=== PATIENT | male | born 1970 | race Caucasian/White ===

== ENCOUNTER 2021-06-15 05:55 | Emergency (ER) | payer OTHER, SELFPAY ==
[2021-06-15] VITALS (9 sets, daily range): BP systolic 124–182; BP diastolic 61–84; PULSE 112–135; RESP 9–32; TEMP 37; O2SAT 95–100; BMI 33.9
--- NOTE | 2021-06-15 06:02 | ED_ITS ---
HPI - SOB/Dyspnea <Palmer Chen DO - Last Filed: 06/16/21 00:27> General Chief Complaint: Shortness of Breath/Dyspnea Stated Complaint: Asthma attack Time Seen by Provider: 06/15/21 05:55 History of Present Illness HPI Narrative: 50-year-old male nonsmoker with history of asthma presents by EMS for evaluation of a severe asthma exacerbation was started a few hours ago. He is unaware of what his trigger was but has become significantly short of breath and by the time EMS arrived they found his respiratory rate in the 40s and a pulse ox in the mid 70s. He denies runny nose, sore throat nor fever or chills. He has no chest pain. He has been taking his medications as directed. His last severe exacerbation was about 4 months ago. He does not live locally. Related Data Previous Rx's Medication Instructions Recorded albuterol sulfate 2.5 mg INHALATION Q4-6H PRN #90 ml 06/15/21 nebulizers #1 ea 06/15/21 prednisone 10 mg tablet See Rx Instructions .ROUTE 06/15/21 .COMPLEX #30 tab Allergies Allergy/AdvReac Type Severity Reaction Status Date / Time No Known Drug Allergies Allergy Verified 06/15/21 06:07 Review of Systems <Palmer Chen DO - Last Filed: 06/16/21 00:27> Review of Systems Narrative: GENERAL: Denies chills, fatigue, malaise, fever, sweats. HEENT: Denies sinus pain, ear pain, sore throat, difficulty swallowing, dizziness. RESPIRATORY: See HPI CARDIOVASCULAR: Denies chest pain, palpitations, orthopnea, edema, GASTROINTESTINAL: Denies nausea, vomiting, abdominal pain, diarrhea, constipation, melena. : Denies dysuria, frequency, incontinence, hematuria, urinary retention. MUSCULOSKELETAL: denies weakness, joint pain, or bony pain SKIN: Denies rash, skin lesions, or other NEUROLOGIC: Denies weakness, headache, numbness, change in speech, confusion, seizures, incoordination. PSYCHIATRIC: No concerning psychosocial issues. 12 point review of systems is negative except for those stated above Exam <Palmer Chen DO - Last Filed: 06/16/21 00:27> Narrative Exam Narrative: GENERAL: [50] year old patient appears stated age. Well- developed patient, in severe distress, non-rebreather in place, rapid breathing, moving little air HEAD: Atraumatic. Normocephalic. EYES: Pupils equal round and reactive. Extraocular motions intact. No scleral icterus. No injection or drainage. ENT: Nose without bleeding, purulent drainage. Throat without erythema, tonsillar hypertrophy or exudate. Airway patent. NECK: Trachea midline. Non tender CARDIOVASCULAR: Tachycardic but regular rhythm without murmurs, gallops, or rubs. RESPIRATORY: Decreased breath sounds throughout, very tight, little air movement, tachypneic GASTROINTESTINAL: Abdomen soft, non-tender, nondistended. EXTREMITIES: No edema or joint tenderness. BACK: Nontender without deformity or crepitance. No flank tenderness. NEURO: AOx3. SKIN: No rash or erythema of visible areas Initial Vital Signs Initial Vital Signs: Vital Signs Temperature 98.6 F 06/15/21 05:55 Pulse Rate 125 H 06/15/21 05:55 Respiratory Rate 32 H 06/15/21 05:55 Blood Pressure 182/84 H 06/15/21 05:55 Pulse Oximetry 95 06/15/21 05:55 <Kisha Banegas DO - Last Filed: 06/15/21 10:02> Initial Vital Signs Initial Vital Signs: Vital Signs Temperature 98.6 F 06/15/21 05:55 Pulse Rate 125 H 06/15/21 05:55 Respiratory Rate 32 H 06/15/21 05:55 Blood Pressure 182/84 H 06/15/21 05:55 Pulse Oximetry 95 06/15/21 05:55 Course <Palmer Chen DO - Last Filed: 06/16/21 00:27> Orders Ordered: Discontinued Medications Albuterol (Albuterol 2.5 Mg/3 Ml Neb (Adult)) 20 mg INH NOW ONE Stop: 06/15/21 06:40 Last Admin: 06/15/21 06:03 Dose: 20 mg Documented by: SANDI Sodium Chloride (Normal Saline 0.9%) 1,000 mls @ 125 mls/hr IV CONT JIGNESH Last Infusion: 06/15/21 08:06 Dose: 0 mls/hr Documented by: Admin: 06/15/21 06:06 Dose: 125 mls/hr Documented by: ELLY Magnesium Sulfate (Magnesium Sulfate) 2 gm in 50 mls @ 150 mls/hr IV NOW ONE Stop: 06/15/21 06:17 Last Infusion: 06/15/21 06:30 Dose: 0 mls/hr Documented by: JEWEL Cosigned by: ELLY Admin: 06/15/21 06:06 Dose: 150 mls/hr Documented by: ELLY Cosigned by: JEWEL Ipratropium [place] (Ipratropium 0.5 Mg/2.5 Ml Neb) 1.5 mg INH NOW ONE Stop: 06/15/21 06:40 Last Admin: 06/15/21 06:03 Dose: 1.5 mg Documented by: SANDI Methylprednisolone (Methylprednisolone 125 Mg/2 Ml Vial) 125 mg IV NOW ONE Stop: 06/15/21 06:20 Last Admin: 06/15/21 06:27 Dose: 125 mg Documented by: ELLY Reevaluation(s) Reevaluation #1: Respiratory therapy waiting on EMS arrival, albuterol 20 mg and Atrovent given, magnesium and fluid bolus given Reevaluation #2: patient feeling significant improvement after above stated therapies Vital Signs Vital signs: Vital Signs - 8 hr 06/15/21 05:55 06/15/21 06:03 06/15/21 06:14 Temperature 98.6 F Pulse Rate 125 H 135 H 122 H Respiratory Rate 32 H 26 H 9 L Blood Pressure 182/84 H Pulse Oximetry 95 98 06/15/21 06:30 06/15/21 06:31 06/15/21 07:00 Temperature Pulse Rate 118 H 121 H 119 H Respiratory Rate 10 L 9 L 11 L Blood Pressure 137/78 124/61 Pulse Oximetry 99 99 100 06/15/21 07:10 06/15/21 07:30 06/15/21 08:00 Temperature Pulse Rate 119 H 112 H Respiratory Rate 20 22 Blood Pressure 133/73 Pulse Oximetry 97 95 <Kisha Banegas DO - Last Filed: 06/15/21 10:02> Orders Ordered: Discontinued Medications Albuterol (Albuterol 2.5 Mg/3 Ml Neb (Adult)) 20 mg INH NOW ONE Stop: 06/15/21 06:40 Last Admin: 06/15/21 06:03 Dose: 20 mg Documented by: SANDI Sodium Chloride (Normal Saline 0.9%) 1,000 mls @ 125 mls/hr IV CONT JIGNESH Last Infusion: 06/15/21 08:06 Dose: 0 mls/hr Documented by: Admin: 06/15/21 06:06 Dose: 125 mls/hr Documented by: ELLY Magnesium Sulfate (Magnesium Sulfate) 2 gm in 50 mls @ 150 mls/hr IV NOW ONE Stop: 06/15/21 06:17 Last Infusion: 06/15/21 06:30 Dose: 0 mls/hr Documented by: JEWEL Cosigned by: ELLY Admin: 06/15/21 06:06 Dose: 150 mls/hr Documented by: ELLY Cosigned by: JEWEL Ipratropium [place] (Ipratropium 0.5 Mg/2.5 Ml Neb) 1.5 mg INH NOW ONE Stop: 06/15/21 06:40 Last Admin: 06/15/21 06:03 Dose: 1.5 mg Documented by: SANDI Methylprednisolone (Methylprednisolone 125 Mg/2 Ml Vial) 125 mg IV NOW ONE Stop: 06/15/21 06:20 Last Admin: 06/15/21 06:27 Dose: 125 mg Documented by: ELLY Vital Signs Vital signs: Vital Signs - 8 hr 06/15/21 05:55 06/15/21 06:03 06/15/21 06:14 Temperature 98.6 F Pulse Rate 125 H 135 H 122 H Respiratory Rate 32 H 26 H 9 L Blood Pressure 182/84 H Pulse Oximetry 95 98 06/15/21 06:30 06/15/21 06:31 06/15/21 07:00 Temperature Pulse Rate 118 H 121 H 119 H Respiratory Rate 10 L 9 L 11 L Blood Pressure 137/78 124/61 Pulse Oximetry 99 99 100 06/15/21 07:10 06/15/21 07:30 06/15/21 08:00 Temperature Pulse Rate 119 H 112 H Respiratory Rate 20 22 Blood Pressure 133/73 Pulse Oximetry 97 95 MDM - SOB/Dyspnea <Palmer Chen DO - Last Filed: 06/16/21 00:27> Lab Data Result diagrams: 06/15/21 06:05 06/15/21 06:05 Labs: Lab Results 06/15/21 06/15/21 06/15/21 Range/Units 06:00 06:05 06:05 WBC 7.5 (4.5-11.0) X10^3/uL RBC 5.18 (4.5-5.9) X10^6/uL Hgb 15.6 (13.5-17.5) g/dL Hct 46.8 (41-53) % MCV 90.4 (80-100) fL MCH 30.2 (26-34) PG MCHC 33.4 (30-36) % RDW 12.6 (11.6-14.8) % Plt Count 308 (150-400) X10^3/uL Neut % (Auto) 41.4 L (50-75) % Lymph % (Auto) 44.8 H (25-40) % Ralls % (Auto) 6.1 (3-14) % Eos % (Auto) 6.7 H (2-4) % Baso % (Auto) 1.0 (0-2) % Neut # (Auto) 3100 (1511-4774) /uL Lymph # (Auto) 3400 (9472-1643) /uL Ralls # (Auto) 500 (0-900) /uL Eos # (Auto) 500 H (0-450) /uL Baso # (Auto) 100 (0-100) /uL ABG pH (7.35-7.45) ABG pCO2 (35-45) mmHg ABG pO2 (80-100) mmHg ABG HCO3 (22-26) mmol/L ABG Total CO2 (21-31) mmol/L ABG O2 Saturation (95-100) % ABG Base Excess (-2-2) mmol/L FiO2 Sodium 140 (137-145) mmol/L Potassium 3.5 (3.4-5.1) mmol/L Chloride 103 (98-107) mmol/L Carbon Dioxide 29 (22-32) mmol/L BUN 22 H (9-20) mg/dL Creatinine 0.72 (0.66-1.25) mg/dL Estimated GFR > 60.0 (>60) mL/min BUN/Creatinine Ratio 30.6 H (6-22) Glucose 136 H (70-100) mg/dL Calcium 9.1 (8.4-10.2) mg/dL Magnesium 1.8 (1.6-2.3) mg/dL Total Bilirubin 0.4 (0.2-1.3) mg/dL AST 26 (17-59) IU/L ALT 33 (<50) IU/L Alkaline Phosphatase 72 (38-126) U/L Total Creatine Kinase 76 (55-170) U/L CK-MB (CK-2) TNP CK-MB (CK-2) Rel Index TNP Troponin I < 0.012 (0.01-0.034) ng/mL NT-Pro-B Natriuret Pep 37 (<125) pg/mL Total Protein 7.6 (6.3-8.2) g/dL Albumin 4.7 (3.5-5.0) g/dL Globulin 2.9 (1.7-4.1) g/dL Albumin/Globulin Ratio 1.6 (1.0-2.8) SARS-CoV-2 (PCR) Negative (Negative) 06/15/21 Range/Units 06:16 WBC (4.5-11.0) X10^3/uL RBC (4.5-5.9) X10^6/uL Hgb (13.5-17.5) g/dL Hct (41-53) % MCV (80-100) fL MCH (26-34) PG MCHC (30-36) % RDW (11.6-14.8) % Plt Count (150-400) X10^3/uL Neut % (Auto) (50-75) % Lymph % (Auto) (25-40) % Ralls % (Auto) (3-14) % Eos % (Auto) (2-4) % Baso % (Auto) (0-2) % Neut # (Auto) (7692-5548) /uL Lymph # (Auto) (3448-3045) /uL Ralls # (Auto) (0-900) /uL Eos # (Auto) (0-450) /uL Baso # (Auto) (0-100) /uL ABG pH 7.29 L* (7.35-7.45) ABG pCO2 51.8 H (35-45) mmHg ABG pO2 90 (80-100) mmHg ABG HCO3 25 (22-26) mmol/L ABG Total CO2 26 (21-31) mmol/L ABG O2 Saturation 96 (95-100) % ABG Base Excess -2.0 (-2-2) mmol/L FiO2 60 Sodium (137-145) mmol/L Potassium (3.4-5.1) mmol/L Chloride (98-107) mmol/L Carbon Dioxide (22-32) mmol/L BUN (9-20) mg/dL Creatinine (0.66-1.25) mg/dL Estimated GFR (>60) mL/min BUN/Creatinine Ratio (6-22) Glucose (70-100) mg/dL Calcium (8.4-10.2) mg/dL Magnesium (1.6-2.3) mg/dL Total Bilirubin (0.2-1.3) mg/dL AST (17-59) IU/L ALT (<50) IU/L Alkaline Phosphatase (38-126) U/L Total Creatine Kinase (55-170) U/L CK-MB (CK-2) CK-MB (CK-2) Rel Index Troponin I (0.01-0.034) ng/mL NT-Pro-B Natriuret Pep (<125) pg/mL Total Protein (6.3-8.2) g/dL Albumin (3.5-5.0) g/dL Globulin (1.7-4.1) g/dL Albumin/Globulin Ratio (1.0-2.8) SARS-CoV-2 (PCR) (Negative) <Kisha Banegas, - Last Filed: 06/15/21 10:02> Lab Data Labs: Lab Results 06/15/21 06/15/21 06/15/21 Range/Units 06:00 06:05 06:05 WBC 7.5 (4.5-11.0) X10^3/uL RBC 5.18 (4.5-5.9) X10^6/uL Hgb 15.6 (13.5-17.5) g/dL Hct 46.8 (41-53) % MCV 90.4 (80-100) fL MCH 30.2 (26-34) PG MCHC 33.4 (30-36) % RDW 12.6 (11.6-14.8) % Plt Count 308 (150-400) X10^3/uL Neut % (Auto) 41.4 L (50-75) % Lymph % (Auto) 44.8 H (25-40) % Ralls % (Auto) 6.1 (3-14) % Eos % (Auto) 6.7 H (2-4) % Baso % (Auto) 1.0 (0-2) % Neut # (Auto) 3100 (8350-0999) /uL Lymph # (Auto) 3400 (5671-1712) /uL Ralls # (Auto) 500 (0-900) /uL Eos # (Auto) 500 H (0-450) /uL Baso # (Auto) 100 (0-100) /uL ABG pH (7.35-7.45) ABG pCO2 (35-45) mmHg ABG pO2 (80-100) mmHg ABG HCO3 (22-26) mmol/L ABG Total CO2 (21-31) mmol/L ABG O2 Saturation (95-100) % ABG Base Excess (-2-2) mmol/L FiO2 Sodium 140 (137-145) mmol/L Potassium 3.5 (3.4-5.1) mmol/L Chloride 103 (98-107) mmol/L Carbon Dioxide 29 (22-32) mmol/L BUN 22 H (9-20) mg/dL Creatinine 0.72 (0.66-1.25) mg/dL Estimated GFR > 60.0 (>60) mL/min BUN/Creatinine Ratio 30.6 H (6-22) Glucose 136 H (70-100) mg/dL Calcium 9.1 (8.4-10.2) mg/dL Magnesium 1.8 (1.6-2.3) mg/dL Total Bilirubin 0.4 (0.2-1.3) mg/dL AST 26 (17-59) IU/L ALT 33 (<50) IU/L Alkaline Phosphatase 72 (38-126) U/L Total Creatine Kinase 76 (55-170) U/L CK-MB (CK-2) TNP CK-MB (CK-2) Rel Index TNP Troponin I < 0.012 (0.01-0.034) ng/mL NT-Pro-B Natriuret Pep 37 (<125) pg/mL Total Protein 7.6 (6.3-8.2) g/dL Albumin 4.7 (3.5-5.0) g/dL Globulin 2.9 (1.7-4.1) g/dL Albumin/Globulin Ratio 1.6 (1.0-2.8) SARS-CoV-2 (PCR) Negative (Negative) 06/15/21 Range/Units 06:16 WBC (4.5-11.0) X10^3/uL RBC (4.5-5.9) X10^6/uL Hgb (13.5-17.5) g/dL Hct (41-53) % MCV (80-100) fL MCH (26-34) PG MCHC (30-36) % RDW (11.6-14.8) % Plt Count (150-400) X10^3/uL Neut % (Auto) (50-75) % Lymph % (Auto) (25-40) % Ralls % (Auto) (3-14) % Eos % (Auto) (2-4) % Baso % (Auto) (0-2) % Neut # (Auto) (6875-5124) /uL Lymph # (Auto) (6536-3038) /uL Ralls # (Auto) (0-900) /uL Eos # (Auto) (0-450) /uL Baso # (Auto) (0-100) /uL ABG pH 7.29 L* (7.35-7.45) ABG pCO2 51.8 H (35-45) mmHg ABG pO2 90 (80-100) mmHg ABG HCO3 25 (22-26) mmol/L ABG Total CO2 26 (21-31) mmol/L ABG O2 Saturation 96 (95-100) % ABG Base Excess -2.0 (-2-2) mmol/L FiO2 60 Sodium (137-145) mmol/L Potassium (3.4-5.1) mmol/L Chloride (98-107) mmol/L Carbon Dioxide (22-32) mmol/L BUN (9-20) mg/dL Creatinine (0.66-1.25) mg/dL Estimated GFR (>60) mL/min BUN/Creatinine Ratio (6-22) Glucose (70-100) mg/dL Calcium (8.4-10.2) mg/dL Magnesium (1.6-2.3) mg/dL Total Bilirubin (0.2-1.3) mg/dL AST (17-59) IU/L ALT (<50) IU/L Alkaline Phosphatase (38-126) U/L Total Creatine Kinase (55-170) U/L CK-MB (CK-2) CK-MB (CK-2) Rel Index Troponin I (0.01-0.034) ng/mL NT-Pro-B Natriuret Pep (<125) pg/mL Total Protein (6.3-8.2) g/dL Albumin (3.5-5.0) g/dL Globulin (1.7-4.1) g/dL Albumin/Globulin Ratio (1.0-2.8) SARS-CoV-2 (PCR) (Negative) MDM Narrative Medical decision making narrative: I received sign-out from Dr. Chen. I have seen and evaluated patient myself. History of asthma as increasing shortness of breath and chest tightness this morning presenting with low O2 at 70%. He received continuous nebulizer, magnesium and Solu-Medrol. He is overall breathing all much better. He is taken off oxygen and maintaining his O2 greater than 95%. He is speaking in full sentences without any difficulty. He ambulated to the restroom have any problem. He says his asthma is usually very well controlled with QVAR and albuterol. However about every is 5-6 months he gets a severe in attack landing him in the emergency department. He usually gets placed on prednisone and does fine afterwards. No prior history of intubations or stations. It is unknow what his trigger was today. He states he uses albuterol multiple times a week I recommend talking to his primary care provider to see if he can be on a different medication to help stabilize his asthma Discharge Plan Departure Patient Disposition: Home Clinical Impression: Asthma with exacerbation Instructions: DI for Asthma -- Adult Activity Restrictions/Additional Instructions: *You have been diagnosed with [ Asthma exacerbation] *What to do: *Please continue to take your regular medications as directed. [ ] New medication prescriptions sent to your pharmacy: [ ] [x ] New medication written as a paper prescription [ ] No new medications given *Please follow up with your primary care provider in 2-3 days, call for an appointment. Let them know you were seen in the Emergency Department and that we ask that you be seen in follow up. We will electronically transmit a record of today's note if your PCP is in our system *If you do not have a primary care provider please contact the [facility] Resource line at [phone]. They will ask some questions about your medical history and help get you set up with a doctor in the community. *Return to Emergency Department if you should have any new, worsening or concerning symptoms, such as [fever greater than 101 F, shaking chills, worsening pain, persistent vomiting or other bothersome symptoms] Prescriptions: New prednisone 10 mg tablet See Rx Instructions .ROUTE .COMPLEX Qty: 30 RF: 0 (DME) nebulizers Misc See Rx Instructions .Route Qty: 1 RF: 0 albuterol sulfate 2.5 mg /3 mL (0.083 %) solution for nebulization 2.5 mg INHALATION Q4-6H PRN (Reason: shortness of breath or wheezing) Qty: 90 RF: 0
[2021-06-15] MEDS: ALBUTEROL 2.5 MG/3 ML NEB (ADULT) 20 MG INH (06:03)
[2021-06-15] MEDS: IPRATROPIUM 0.5 MG/2.5 ML NEB 1.5 MG INH (06:03)
[2021-06-15] MEDS: MAGNESIUM SULFATE 2 GM/50 ML PIGGYBACK IV (06:06)
[2021-06-15] MEDS: SODIUM CHLORIDE 0.9% 1,000 ML 125 ML IV (06:06)
[2021-06-15 06:12] LABS: Add Manual Diff / Slide Review NO; Basophils Absolute Auto 100 /uL (0-100); Eosinophils Absolute Auto 500 /uL (0-450); Eosinophils Percent Auto 6.7 % (2-4); Hematocrit 46.8 % (41-53); Hemoglobin 15.6 g/dL (13.5-17.5); Lymphocytes Absolute Auto 3400 /uL (1100-4500); Lymphocytes Percent Auto 44.8 % (25-40); Mean Corpuscular HGB Conc 33.4 % (30-36); Mean Corpuscular Hemoglobin 30.2 PG (26-34); Mean Corpuscular Volume 90.4 fL (80-100); Monocytes Absolute Auto 500 /uL (0-900); Monocytes Percent Auto 6.1 % (3-14); Neutrophils Absolute Auto 3100 /uL (1500-7000); Neutrophils Percent Auto 41.4 % (50-75); Platelet Count 308 X10^3/uL (150-400); Red Blood Cell Count 5.18 X10^6/uL (4.5-5.9); Red Cell Distribution Width 12.6 % (11.6-14.8); White Blood Cell Count 7.5 X10^3/uL (4.5-11.0)
[2021-06-15 06:21] LABS: COVID19 -Nasal RAPID Negative (Negative)
[2021-06-15 06:24] LABS: Alanine Aminotransferase 33 IU/L (<50); Albumin 4.7 g/dL (3.5-5.0); Albumin Globulin Ratio 1.6 (1.0-2.8); Alkaline Phosphatase 72 U/L (38-126); Aspartate Aminotransferase 26 IU/L (17-59); BUN Creatinine Ratio 30.6 (6-22); Bilirubin Total 0.4 mg/dL (0.2-1.3); Blood Urea Nitrogen 22 mg/dL (9-20); Calcium 9.1 mg/dL (8.4-10.2); Carbon Dioxide 29 mmol/L (22-32); Chloride 103 mmol/L (98-107); Creatine Kinase 76 U/L (55-170); Estimated Glomerular Filt Rate > 60.0 mL/min (>60); Globulin 2.9 g/dL (1.7-4.1); Glucose 136 mg/dL (70-100); HEMOLYSIS 23 (0-50); Magnesium 1.8 mg/dL (1.6-2.3); Potassium 3.5 mmol/L (3.4-5.1); Sodium 140 mmol/L (137-145); Total Protein 7.6 g/dL (6.3-8.2)
--- NOTE | 2021-06-15 06:25 | PC.NURSE ---
Pt now improving, resting. Remains on continuous neb. States he's feeling better.
[2021-06-15] MEDS: methylPREDNISolone 125 MG/2 ML VIAL IV (06:27)
[2021-06-15 06:32] LABS: HCO3 ABG 25 mmol/L (22-26); Oxygen Saturation ABG 96 % (95-100); PCO2 ABG 51.8 mmHg (35-45); PO2 ABG 90 mmHg (80-100); TCO2 ABG 26 mmol/L (21-31); pH ABG 7.29 (7.35-7.45)
[2021-06-15 06:33] LABS: Fractionated Inspired Oxygen 60
[2021-06-15 06:35] LABS: NT-proBNP (BNP-Adult 18+) 37 pg/mL (<125); Troponin I < 0.012 ng/mL (0.01-0.034)
== END 2021-06-15 08:24 | disposition home or self-care (01) ==
PROVIDERS: Emergency Medicine; Emergency Provider Emergency Medicine
DX: J45.901 Unspecified asthma with (acute) exacerbation (principal); Z20.822 Contact with and (suspected) exposure to COVID-19
CPT/HCPCS: 36600; 80053; 82550; 82805; 83735; 83880; 84484; 85025; 87635; 96361; 96374; 99284; C9803; J2930; J3475; J7613